=== PATIENT | female | born 1940 | race Caucasian/White ===

== ENCOUNTER 2020-07-07 22:44 | Outpatient (CLI) | payer MEDICARE, SELFPAY ==
--- NOTE | 2020-07-07 15:19 | DI.RAD_ITS ---
EXAM: XR ANKLE RT COMPLETE CLINICAL HISTORY: RT ANKLE JOINT PAIN M25.571. TECHNIQUE: 2D digital imaging was performed. COMPARISON: No exams were available for comparison FINDINGS: BONES: There is an acute transverse fracture of the distal right fibula at the level of the ankle mor tise. No other fracture or dislocation is present. No bony destructive lesion is seen. There is a s mall spur at the plantar surface of the calcaneus. JOINTS: The ankle mortise is normally aligned. SOFT TISSUE: There is soft tissue swelling about the ankle. IMPRESSION: Nondisplaced transverse fracture through the lateral malleolus at the level of the ankle mortise. DATA REPOSITORY: RADIATION DOSE DELIVERED:
== END 2020-07-07 22:45 | disposition home or self-care (01) ==
LOC: DI 22:44
PROVIDERS: Visit Provider Nurse Practitioner Family
DX: S82.64XA Nondisplaced fracture of lateral malleolus of right fibula, initial encounter for closed fracture (principal)
CPT/HCPCS: 73610

== ENCOUNTER 2020-07-22 13:31 | Outpatient (CLI) | payer MEDICARE, SELFPAY ==
--- NOTE | 2020-07-22 09:00 | DI.RAD_ITS ---
EXAM: XR ANKLE RT COMPLETE INDICATION: referral. COMPARISON: CR XR ANKLE RT COMPLETE from 07/07/2020 TECHNIQUE: 2D digital imaging was performed. FINDINGS: There has been no change in the alignment of the lateral malleolar fracture. Adjacent soft tissue swe lling remains present. there is no talar dome defect or ankle mortise widening. A heel spur is note d DATA REPOSITORY: RADIATION DOSE DELIVERED:
== END 2020-07-22 13:32 | disposition home or self-care (01) ==
LOC: DIORS 13:32
PROVIDERS: PCP Physician Assistant; Referring Provider Physician Assistant; Visit Provider Physician Assistant Surgical
DX: S82.64XD Nondisplaced fracture of lateral malleolus of right fibula, subsequent encounter for closed fracture with routine healing (principal); S82.831D Other fracture of upper and lower end of right fibula, subsequent encounter for closed fracture with routine healing; X58.XXXD Exposure to other specified factors, subsequent encounter
CPT/HCPCS: 99213; 73610

== ENCOUNTER → 2020-08-19 08:56 | Outpatient (BNVA) | payer MEDICARE, SELFPAY | PROVIDERS: PCP Physician Assistant; Referring Provider Physician Assistant; Visit Provider Student in an Organized Health Care Education/Training Program | DX: S82.831D Other fracture of upper and lower end of right fibula, subsequent encounter for closed fracture with routine healing (principal); X58.XXXD Exposure to other specified factors, subsequent encounter | CPT/HCPCS: 99213 ==

== ENCOUNTER 2020-11-10 11:11 | Outpatient (REF) | payer MEDICARE, SELFPAY ==
[2020-11-10 14:21] LABS: HCT 43.8 % (36.0-46.0); HGB 14.2 g/dL (11.2-15.7); MCHC 32.4 % (32.0-36.0); MCV 89.4 fL (80-95); MPV 10.8 fL (8.0-11.0); Platelet Count 370 10^3/uL (130-400); RDW 13.1 % (11.7-14.6); RDW-SD 43.3 fL; WBC 10.22 10^3/uL (4.4-10.8)
[2020-11-10 14:50] LABS: ALT 26 U/L (14-59); AST 19 U/L (15-37); Albumin 3.8 g/dL (3.4-5.0); Alkaline Phosphatase 139 U/L (46-116); Anion Gap 8.7 mmol/L (3-11); BUN 9 mg/dL (7-18); Bilirubin, Total 0.7 mg/dL (0.2-1.0); CO2 28.3 mmol/L (21.0-32.0); CREATININE 0.8 mg/dL (0.55-1.02); Calcium 9.7 mg/dL (8.5-10.1); Calculated LDL 175 mg/dL (<100); Chloride 104 mmol/L (98-107); Cholesterol 266 mg/dL (<200); Glucose 83 mg/dL (74-106); HDL Cholesterol 71 mg/dL (40-60); Potassium 4.2 mmol/L (3.5-5.1); Sodium 141 mmol/L (136-145); Total Protein 7.3 g/dL (6.4-8.2); Triglyceride 100 mg/dL (<150)
== END 2020-11-10 11:12 | disposition home or self-care (01) ==
LOC: NCHCN 11:11
PROVIDERS: PCP Physician Assistant; Visit Provider Physician Assistant
DX: I10 Essential (primary) hypertension (principal)
CPT/HCPCS: 80053; 80061; 85027

== ENCOUNTER 2020-11-17 11:06 | Outpatient (REF) | payer MEDICARE, SELFPAY ==
[2020-11-18 10:37] LABS: Parathyroid Hormone,Intact 86 pg/mL (19-88)
== END 2020-11-17 11:07 | disposition home or self-care (01) ==
LOC: LBN 11:06
PROVIDERS: PCP Physician Assistant; Visit Provider Physician Assistant
DX: E07.89 Other specified disorders of thyroid (principal)
CPT/HCPCS: 83970

== ENCOUNTER 2020-12-24 02:19 | Outpatient (CLI) | payer MEDICARE, SELFPAY ==
--- NOTE | 2020-12-24 | DI.US_ITS ---
Exam(s) US LOWER EXTREMITY VENOUS RT EXAM: US LOWER EXTREMITY VENOUS RT CLINICAL HISTORY: RT CALF PAIN, M79.661,? DVT TECHNIQUE: Grayscale, color, and doppler imaging of the deep venous system of the right lower extrem ity was performed. COMPARISON: No exams were available for comparison FINDINGS: There is no evidence of intraluminal thrombus and there is normal compression and augmentation demons trated within the common femoral vein, femoral vein, and popliteal vein. In the ipsilateral calf the interrogated veins also exhibit normal compression/ augmentation properti es. The ipsilateral saphenofemoral junction is patent. IMPRESSION: 1. No evidence of DVT in the right lower extremity. 2. There is mild edema around the ankle.. There also appears to be a small fluid collection adjacen t to the tibiotalar joint, possibly joint effusion versus para-articular ganglion. DATA REPOSITORY:
== END 2020-12-24 02:39 ==
PROVIDERS: PCP Physician Assistant; Visit Provider Physician Assistant
DX: M79.661 Pain in right lower leg (principal); R60.0 Localized edema
CPT/HCPCS: 93971

== ENCOUNTER → 2021-12-25 00:26 | Outpatient (CLI) | payer MEDICARE, SELFPAY ==
--- NOTE | 2021-12-25 | DI.US_ITS ---
Exam(s) US THYROID EXAM: US THYROID CLINICAL HISTORY: ENLARGED THYROID E04.9. TECHNIQUE: Ultrasound thyroid performed using standard protocol. COMPARISON: No exams were available for comparison FINDINGS: ISTHMUS: 2.2 mm RIGHT LOBE: Size: 3.9 x 1.5 x 1.5 cm Echogenicity: Normal. Vascularity: Normal. Nodules: No suspicious nodules are seen. LEFT LOBE: Size: 2.4 x 0.9 x 0.8 cm Echogenicity: Normal. Vascularity: Normal. Nodules: There is a mildly hypoechoic nodule in the midpole measuring 0.7 x 0.4 x 0.6 cm. It is well -circumscribed with no echogenic foci. It is consistent with a TI rads level 3 nodule. Based on its size no follow-up is recommended. OTHER FINDINGS: None. IMPRESSION: No sonographically suspicious thyroid nodules. DATA REPOSITORY:
== END ==
PROVIDERS: PCP Physician Assistant; Visit Provider Physician Assistant
DX: E04.9 Nontoxic goiter, unspecified (principal)
CPT/HCPCS: 76536

== ENCOUNTER → 2022-09-21 10:33 | Outpatient (BNVA) | payer MEDICARE, SELFPAY | PROVIDERS: PCP Physician Assistant; Referring Provider Podiatrist Foot & Ankle Surgery; Visit Provider Surgery | DX: I73.9 Peripheral vascular disease, unspecified (principal) | CPT/HCPCS: 93922 ==

== ENCOUNTER 2022-10-18 10:46 | Outpatient (CLI) | payer MEDICARE, SELFPAY ==
--- NOTE | 2022-10-18 10:15 | DI.RAD_ITS ---
Exam(s) XR ANKLE RT COMPLETE EXAM: XR ANKLE RT COMPLETE CLINICAL HISTORY: R ankle pain. TECHNIQUE: 2D digital imaging was performed of the right ankle. Three images were obtained. AP, la teral and oblique views were obtained. COMPARISON: CR XR ANKLE RT COMPLETE from 07/22/2020 FINDINGS: BONES: No acute fracture is present. No bony destructive lesion is seen. There is a small plantar ca lcaneal spur. JOINTS: The ankle mortise is normally aligned. Mild degenerative changes are seen at the talonavicula r joint. SOFT TISSUE: Normal. IMPRESSION: No acute abnormality. DATA REPOSITORY: RADIATION DOSE DELIVERED:
== END 2022-10-18 10:47 | disposition home or self-care (01) ==
LOC: DIORS 10:47
PROVIDERS: PCP Physician Assistant; Referring Provider Physician Assistant; Visit Provider Student in an Organized Health Care Education/Training Program
DX: S86.111D Strain of other muscle(s) and tendon(s) of posterior muscle group at lower leg level, right leg, subsequent encounter; X58.XXXD Exposure to other specified factors, subsequent encounter; M76.32 Iliotibial band syndrome, left leg; Z87.81 Personal history of (healed) traumatic fracture
CPT/HCPCS: 99213; 73610

== ENCOUNTER 2023-05-19 15:19 | Outpatient (CLI) | payer MEDICARE, SELFPAY ==
[2023-05-20 09:39] LABS: Lyme Ab w Rflx to Lyme Confirm Negative (Negative)
[2023-05-20 22:13] LABS: Anaplasma phagocytophilum Ab <1:64 titer (<1:64)
[2023-05-20 23:54] LABS: Bartonella Henselae IgG <1:128 titer (<1:128); Bartonella Henselae IgM <1:20 titer (<1:20); Bartonella Quintana IgG <1:128 titer (<1:128); Bartonella Quintana IgM <1:20 titer (<1:20)
[2023-05-21 16:11] LABS: Spotted Fever Group Ab IgG <1:64 (<1:64); Spotted Fever Group Ab IgM <1:64 (<1:64)
== END 2023-05-19 15:20 | disposition home or self-care (01) ==
LOC: LBO 15:19
PROVIDERS: PCP Physician Assistant; Visit Provider Nurse Practitioner
DX: M25.50 Pain in unspecified joint (principal)
CPT/HCPCS: 36415; 86666; 86753; 86611; 86618; 86757

== ENCOUNTER 2024-04-18 02:46 | Outpatient (CLI) | payer MEDICARE, SELFPAY ==
[2024-04-18 08:46] LABS: Abs Immature Grans 0.03 10^3/uL (0.0-0.06); Absolute Eosinophil Count 0.26 10^3/uL (0.0-0.7); Absolute Lymphocyte Count 2.75 10^3/uL (1.2-3.4); Absolute Monocyte Count 0.67 10^3/uL (0.1-0.8); Absolute Neutrophil Count 4.74 10^3/uL (1.2-6.7); Basophils % 1.2 %; HCT 39.2 % (36.0-46.0); HGB 12.4 g/dL (11.2-15.7); Immature Grans % 0.4 %; Lymphocytes % 32.2 %; MCH 29.6 pg (27.0-33.0); MCHC 31.6 % (32.0-36.0); MCV 94 fL (80-95); MPV 8.7 fL (8.0-11.0); Monocytes % 7.8 %; Neutrophils % 55.4 %; Platelet Count 398 10^3/uL (130-400); RBC 4.19 10^6/uL (3.93-5.22); RDW 14.1 % (11.7-14.6); RDW-SD 48.5 fL; WBC 8.55 10^3/uL (4.4-10.8)
[2024-04-18 10:01] LABS: ALT 21 U/L (14-59); AST 13 U/L (15-37); Albumin 3.2 g/dL (3.4-5.0); Alkaline Phosphatase 71 U/L (46-116); Anion Gap 7.9 mmol/L (3-11); BUN 16 mg/dL (7-18); Bilirubin, Total 0.49 mg/dL (0.2-1.0); CO2 28.1 mmol/L (21.0-32.0); Chloride 107 mmol/L (98-107); Folate 4.7 ng/mL (8.6-20.0); Glucose 90 mg/dL (74-106); Potassium 3.7 mmol/L (3.5-5.1); Sodium 143 mmol/L (136-145); TSH 4.66 uIU/mL (0.36-3.74); Total Protein 7.2 g/dL (6.4-8.2); Vitamin B12 641 pg/mL (193-986)
[2024-04-18 18:06] LABS: T3, Total 137 ng/dL (97-169)
[2024-04-18 18:31] LABS: Homocysteine 18.6 umol/L (5.0-13.9)
[2024-04-25 10:22] LABS: T3 (Triiodothyronine) Reverse 19 ng/dL (10-24)
== END 2024-04-18 02:47 | disposition home or self-care (01) ==
PROVIDERS: PCP Nurse Practitioner Family; Visit Provider Nurse Practitioner
DX: R53.83 Other fatigue (principal); E55.9 Vitamin D deficiency, unspecified; E78.5 Hyperlipidemia, unspecified
CPT/HCPCS: 36415; 80053; 80061; 82306; 83090; 82172; 82607; 82664; 82746; 83735; 84443; 84480; 84482; 85025